=== PATIENT | female | born 1935 | race African-American/Black ===

== ENCOUNTER 2018-11-17 17:01 | Emergency (ER) | payer OTHER ==
[~2018-11-17] VITALS: Ht 147.3 cm; Wt 51.3 kg
[~2018-11-17 17:01] MED LIST: TUSSI PRES-B L120 M1 PO; ZITHROMAX TRI-500 MG PO
[2018-11-17] MEDS ORDERED: ZESTRIL40 M1 (17:12)
[2018-11-17] MEDS ORDERED: NORVASC5 MG (17:13)
[2018-11-17] MEDS ORDERED: TOPROL XL50 MG (17:14)
[2018-11-17] MEDS ORDERED: [UNRECOGNIZED DRUG - OTHER] (17:14)
[2018-11-17] MEDS ORDERED: METFORMIN HCL500 M3 (17:14)
[2018-11-17] MEDS ORDERED: SIMVASTATIN10 MG (17:15)
== END 2018-11-17 21:58 | disposition home or self-care (01) ==
LOC: ER 17:01
DX: B02.8 Zoster with other complications (principal)

== ENCOUNTER 2018-11-20 16:11 | Emergency (ER) | payer OTHER ==
[~2018-11-20] VITALS: Ht 149.9 cm; Wt 51.3 kg
[~2018-11-20 16:11] MED LIST changes: +METFORMIN HCL500 M3; +NORVASC5 MG; +SIMVASTATIN10 MG; +TOPROL XL50 MG; +ZESTRIL40 M1; +[UNRECOGNIZED DRUG - OTHER]
[2018-11-20] MEDS ORDERED: GABAPENTIN300 MG PO (19:27)
[2018-11-20] MEDS ORDERED: ONDANSETRON ODT4 MG SL (19:27)
[2018-11-20] MEDS ORDERED: PEPCID AC20 MG PO (19:27)
== END 2018-11-20 20:01 | disposition home or self-care (01) ==
LOC: ER 16:11
DX: B02.9 Zoster without complications (principal); K29.70 Gastritis, unspecified, without bleeding

== ENCOUNTER 2021-01-07 14:52 | Emergency (ER) | payer OTHER ==
[~2021-01-07] VITALS: Ht 144.8 cm; Wt 61.7 kg
[~2021-01-07 14:52] MED LIST changes: +GABAPENTIN300 MG PO; +ONDANSETRON ODT4 MG SL; +PEPCID AC20 MG PO
[2021-01-07] MEDS ORDERED: LIPOFLAVONOID (15:27)
[2021-01-07] MEDS ORDERED: XELPROS2.5 ML (15:28)
[2021-01-07] MEDS ORDERED: ZOVIRAX800 MG PO (16:51)
[2021-01-07] MEDS ORDERED: CAPSAICIN60 GM TOP (16:54)
== END 2021-01-07 17:09 | disposition home or self-care (01) ==
LOC: ER 14:52
DX: B02.39 Other herpes zoster eye disease (principal)

== ENCOUNTER 2023-07-04 09:10 | Emergency (ER) | payer OTHER ==
[~2023-07-04] VITALS: Ht 152.4 cm; Wt 59.0 kg
[~2023-07-04 09:10] MED LIST changes: +CAPSAICIN60 GM TOP; +LIPOFLAVONOID; +XELPROS2.5 ML; +ZOVIRAX800 MG PO
== END 2023-07-04 11:33 | disposition home or self-care (01) ==
LOC: ER 09:12
DX: S09.8XXA Other specified injuries of head, initial encounter (principal); W18.39XA Other fall on same level, initial encounter; Y93.89 Activity, other specified; Y92.413 State road as the place of occurrence of the external cause; E11.9 Type 2 diabetes mellitus without complications; Z79.84 Long term (current) use of oral hypoglycemic drugs; I10 Essential (primary) hypertension